=== PATIENT | male | born 1965 | race Caucasian/White ===

== ENCOUNTER 2017-03-24 09:18 | Emergency (ER) | payer BC, OTHER ==
[~2017-03-24] VITALS: Ht 182.9 cm; Wt 113.4 kg
--- NOTE | 2017-03-24 09:55 | NUR ---
Patient discharged to home in stable conditon. Written and verbal after care instructions given. Patient verbalizes understanding of instructions.
== END 2017-03-24 09:55 | disposition home or self-care (01) ==
LOC: ER 09:19
DX: S20.219A Contusion of unspecified front wall of thorax, initial encounter (principal); F17.200 Nicotine dependence, unspecified, uncomplicated; W23.0XXA Caught, crushed, jammed, or pinched between moving objects, initial encounter; Y93.89 Activity, other specified; Y92.9 Unspecified place or not applicable; Y99.9 Unspecified external cause status
CPT/HCPCS: 71101; 99284; A4663

== ENCOUNTER 2017-10-20 10:19 | Emergency (ER) | payer BC, OTHER ==
[~2017-10-20] VITALS: Ht 182.9 cm; Wt 99.8 kg
--- NOTE | 2017-10-20 11:34 | NUR ---
Patient discharged to home in stable conditon. Written and verbal after care instructions given. Patient verbalizes understanding of instructions.
== END 2017-10-20 11:35 | disposition home or self-care (01) ==
LOC: ER 10:21
DX: S62.112A Displaced fracture of triquetrum [cuneiform] bone, left wrist, initial encounter for closed fracture (principal); F17.200 Nicotine dependence, unspecified, uncomplicated; W01.0XXA Fall on same level from slipping, tripping and stumbling without subsequent striking against object, initial encounter; Y93.67 Activity, basketball; Y92.89 Other specified places as the place of occurrence of the external cause; Y99.8 Other external cause status
CPT/HCPCS: 29125; 73090; 73100; 99284; A4663

== ENCOUNTER 2017-10-22 08:46 | Outpatient (CLI) | payer BC, OTHER | END 2017-10-22 23:59 | disposition home or self-care (01) | LOC: RAD 08:46 | PROVIDERS: ATTEND Legal Medicine | DX: S69.92XA Unspecified injury of left wrist, hand and finger(s), initial encounter (principal); X58.XXXA Exposure to other specified factors, initial encounter; Y93.89 Activity, other specified; Y92.89 Other specified places as the place of occurrence of the external cause; Y99.8 Other external cause status | CPT/HCPCS: 73200 ==

== ENCOUNTER 2023-05-31 08:43 | Emergency (ER) | payer BC, OTHER ==
[~2023-05-31] VITALS: Ht 182.9 cm; Wt 111.1 kg
[2023-05-31] MEDS ORDERED: IBUP-1955 PO (09:26)
[2023-05-31 09:48] VITALS: BP 127/78; O2SAT 98
== END 2023-05-31 09:48 | disposition home or self-care (01) ==
LOC: ER 08:46
DX: S83.8X1A Sprain of other specified parts of right knee, initial encounter (principal); F17.200 Nicotine dependence, unspecified, uncomplicated; Z79.899 Other long term (current) drug therapy; X58.XXXA Exposure to other specified factors, initial encounter; Y93.89 Activity, other specified; Y92.89 Other specified places as the place of occurrence of the external cause; Y99.8 Other external cause status
CPT/HCPCS: A4606; A4663